=== PATIENT | female | born 1960 | race Caucasian/White ===

== ENCOUNTER 2018-10-22 07:10 | Emergency (ER) | payer BC, OTHER ==
[2018-10-22 07:52] VITALS: BP 160/86
--- NOTE | 2018-10-22 08:17 | ED ---
Back Pain - HPI Summary HPI Summary: 58 yr old female with the complaint of low back pain. The patient complains of pain to the low back, onset a couple days ago when lifted object at work, and located in low lumbar area. She states her symptoms are improved since the injury. She was seen at [facility] and had CT scan lumbar and she states that was ok. She also states she has a work to be out of work until Oct 26. She is requesting a follow up visit today, and states her primary does not manage worker comp. - History of Current Complaint Chief Complaint: UCBackPain Stated Complaint: W/C BACK PAIN Time Seen by Provider: 10/22/18 08:03 Hx Last Menstrual Period: uterine ablation/hysterectomy Pain Intensity: 4 - Allergies/Home Medications Allergies/Adverse Reactions: Allergies Allergy/AdvReac Type Severity Reaction Status Date / Time acetaminophen [From Vicodin] Allergy Vomiting Verified 10/22/18 07:45 hydrocodone [From Vicodin] Allergy Vomiting Verified 10/22/18 07:45 Penicillins Allergy Hives Verified 10/22/18 07:45 Home Medications: Home Medications Ibuprofen TAB* [Motrin TAB* 400 MG] 400 mg PO Q6H PRN 10/22/18 [History Confirmed 10/22/18] Metoprolol Tartrate TAB* [Lopressor TAB*] 50 mg PO BID 10/22/18 [History Confirmed 10/22/18] Multivitamins/Minerals TAB* [Theragran/minerals TAB*] 1 tab PO DAILY 10/22/18 [ History Confirmed 10/22/18] [place]-3 Fatty Acids/Fish Oil [Fish Oil 1200 mg] 1 cap PO DAILY 10/22/18 [ History Confirmed 10/22/18] PMH/Surg Hx/FS Hx/Imm Hx Cardiovascular History: Reports: Hx Hypertension - on meds - Surgical History Surgery Procedure, Year, and Place: Partial Hysterectomy , Left Breast , Right foot, right leg Infectious Disease History: No Infectious Disease History: Denies: Traveled Outside the [place] in Last 30 Days - Family History Known Family History: Positive: None - Social History Alcohol Use: Occasionally Substance Use Type: Reports: None Smoking Status (MU): Never Smoked Tobacco Review of Systems Constitutional: Negative Positive: Other - back pain All Other Systems Reviewed And Are Negative: Yes Physical Exam Triage Information Reviewed: Yes Vital Signs On Initial Exam: Initial Vitals Temp Pulse Resp BP Pulse Ox 98.0 F 71 16 160/86 99 10/22/18 07:46 10/22/18 07:46 10/22/18 07:46 10/22/18 07:46 10/22/18 07:46 Vital Signs Reviewed: Yes Appearance: Positive: Well-Appearing, No Pain Distress Head/Face: Positive: Normal Head/Face Inspection Eyes: Positive: EOMI ENT: Positive: Normal ENT inspection Neck: Positive: Nontender Respiratory/Lung Sounds: Positive: Clear to Auscultation, Breath Sounds Present Cardiovascular: Positive: RRR. Negative: Murmur Abdomen Description: Positive: Nontender Musculoskeletal: Positive: Strength/ROM Intact Neurological: Positive: Sensory/Motor Intact, Alert, Oriented to Person Place, Time, CN Intact II-III, Normal Gait - [place] Coma Scale Best Eye Response: 4 - Spontaneous Best Motor Response: 6 - Obeys Commands Best Verbal Response: 5 - Oriented Coma Scale Total: 15 Diagnostics - Vital Signs Vital Signs Temp Pulse Resp BP Pulse Ox 10/22/18 07:46 98.0 F 71 16 160/86 99 - Laboratory Lab Statement: Any lab studies that have been ordered have been reviewed, and results considered in the medical decision making process. Back Pain Course/Dx - Course Course Of Treatment: 58 yr old with low back strain. FU with Dr Nair for worker comp. Her primary for her BP recheck - Diagnoses Provider Diagnoses: Low back pain Discharge - Sign-Out/Discharge Documenting (check all that apply): Patient Departure All imaging exams completed and their final reports reviewed: No Studies - Discharge Plan Condition: Good Disposition: HOME Patient Education Materials: Low Back Strain (ED), Hypertension (ED) Referrals: Stanley Nair MD [Medical Doctor] - 1 Day Kemal Reddy [Primary Care Provider] - 2 Days - Billing Disposition and Condition Condition: GOOD Disposition: Home
== END 2018-10-22 08:22 | disposition home or self-care (01) ==
LOC: UCCORT 07:10
DX: M54.5 Low back pain (principal); X50.0XXA Overexertion from strenuous movement or load, initial encounter; Y93.89 Activity, other specified; Y92.89 Other specified places as the place of occurrence of the external cause; Y99.0 Civilian activity done for income or pay; Z88.0 Allergy status to penicillin; Z88.5 Allergy status to narcotic agent; Z88.6 Allergy status to analgesic agent; I10 Essential (primary) hypertension
CPT/HCPCS: 99211; G0463